=== PATIENT | female | born 1955 | race Caucasian/White ===

== ENCOUNTER 2016-12-23 06:29 | Inpatient (IN) | payer OTHER ==
[~2016-12-23] VITALS: Ht 160 cm; Wt 104.3 kg
[~2016-12-23 06:29] MED LIST: GLIP10TA11 PO; SIMV5TAB53 PO; SITA1TAB9 PO; SYNTHROID PO; [UNRECOGNIZED DRUG - OTHER]
[2016-12-23 06:35] VITALS: BP_SYST 161
[2016-12-23] MEDS ORDERED: NACL 0.9% 1,000 ML IV ONE (07:05)
[2016-12-23] MEDS ORDERED: MECLIZINE HCL 25 MG TABLET (ANITVERT) PO ONE (07:15)
[2016-12-23] MEDS ORDERED: ONDANSETRON HCL 4 MG/2 ML VIAL IVP ONE (07:15)
[2016-12-23] MEDS ORDERED: KETOROLAC TROMETHAMINE 30 MG VIAL IVP ONE (07:15)
[2016-12-23 07:22] LABS: BASOPHILS % (AUTO) 0.6 % (0.0-2.0); EOSINOPHILS # (AUTO) 0.1 K/uL (0.0-0.4); HEMATOCRIT 37.5 % (36-48); HEMOGLOBIN 12.6 g/dL (12.0-16.0); LYMPHOCYTES # (AUTO) 1.5 K/uL (1.0-5.5); LYMPHOCYTES % (AUTO) 29.9 % (20.5-51.5); MEAN CORPUSCULAR HEMOGLOBIN 29 pg (27-31); MEAN CORPUSCULAR HGB CONC 34 % (32-36); MEAN CORPUSCULAR VOLUME 88 fL (79.0-98.0); MONOCYTES # (AUTO) 0.3 K/uL (0.0-1.0); MONOCYTES % (AUTO) 6.1 % (1.7-9.3); NEUTROPHILS % (AUTO) 61.4 % (40.0-70.0); PLATELET COUNT (AUTO) 316 K/uL (130-430); RED BLOOD CELL COUNT(AUTO) 4.29 MIL/uL (4.2-6.2); RED CELL DISTRIBUTION WIDTH 12.4 % (9.0-15.0); WHITE BLOOD COUNT (AUTO) 4.9 K/uL (4.8-10.8)
[2016-12-23 08:01] LABS: ANION GAP 13 (5-15); CALCIUM 9.8 mg/dL (8.4-11.0); CHLORIDE 101 mmol/L (98-107); GLUCOSE 281 mg/dL (70-99); POTASSIUM 3.8 mmol/L (3.5-5.1); SODIUM SERUM 137 mmol/L (136-145); UREA NITROGEN, BLOOD 25 mg/dL (8-21)
[2016-12-23 08:02] LABS: GFR AFRICAN AMERICAN 54 mL/min (>90); TOTAL BILIRUBIN 0.4 mg/dL (0.0-1.0)
[2016-12-23 08:03] LABS: ALANINE AMINOTRANSFERASE 32 U/L (12-78); ALBUMIN 3.5 g/dL (3.4-4.8); ASPARTATE AMINOTRANSFERASE 22 U/L (10-37)
[2016-12-23 08:05] LABS: ACETONE, SERUM NEGATIVE (NEGATIVE)
[2016-12-23] MEDS ORDERED: fentaNYL CITRATE/PF 100 MCG/2 ML AMP IVP ONE (08:15)
[2016-12-23] MEDS ORDERED: PROMETHAZINE HCL 25 MG/ML AMP IVP ONE (08:15)
[2016-12-23] MEDS ORDERED: LEVO25TA58 PO (09:08)
[2016-12-23] MEDS ORDERED: HUM10VIA3 SUBCUT (09:08)
[2016-12-23] MEDS ORDERED: GLU500 PO (09:08)
[2016-12-23 09:42] VITALS: BP_SYST 131
[2016-12-23] MEDS ORDERED: DEXTROSE 50% JECT 50 ML DISP.SYRIN IVP PRN (10:30)
[2016-12-23 10:51] LABS: CHOLESTEROL 146 mg/dL (<200); HDL CHOLESTEROL 69 mg/dL (>55); LDL CHOLESTEROL 60 mg/dL (<100); TRIGLYCERIDES 135 mg/dL (30-150)
[2016-12-23] MEDS: INSULIN NPH/REGULAR 70-30, 100 UNITS/ML, 10 ML VIAL SUBCUT SCH ×3 (11:30→20:23)
[2016-12-23] MEDS: ASPIRIN 325 MG TABLET PO SCH (13:33)
[2016-12-23 16:02] VITALS: BP_SYST 130
[2016-12-23] MEDS: metFORMIN HCL 500 MG TABLET PO SCH (17:13)
[2016-12-23] MEDS: ACETAMINOPHEN 325 MG TABLET PO PRN (17:13)
[2016-12-23] MEDS: INSULIN REGULAR, HUMAN 100 UNITS/ML, 10 ML VIAL (novoLIN R) SUBCUT PRN (17:20)
[2016-12-23 20:00] VITALS: BP_SYST 111
[2016-12-24 00:31] VITALS: BP_SYST 117
[2016-12-24 04:00] VITALS: BP_SYST 124
[2016-12-24] MEDS: INSULIN NPH/REGULAR 70-30, 100 UNITS/ML, 10 ML VIAL SUBCUT SCH ×2 (06:09→12:13)
[2016-12-24] MEDS: INSULIN REGULAR, HUMAN 100 UNITS/ML, 10 ML VIAL (novoLIN R) SUBCUT PRN ×2 (06:11→12:14)
[2016-12-24] MEDS ORDERED: LEVOTHYROXINE SODIUM 0.025 MG TABLET PO SCH (07:00)
[2016-12-24 07:38] VITALS: BP_SYST 138
[2016-12-24] MEDS ORDERED: SIMVASTATIN 10 MG TABLET PO SCH (09:00)
[2016-12-24] MEDS ORDERED: SYNTHROID 88 MCG PO SCH (09:00)
[2016-12-24] MEDS: metFORMIN HCL 500 MG TABLET PO SCH (09:35)
[2016-12-24] MEDS: ASPIRIN 325 MG TABLET PO SCH (09:35)
[2016-12-24] MEDS ORDERED: MECL12.584 PO (10:01)
[2016-12-24] MEDS: ACETAMINOPHEN 325 MG TABLET PO PRN (11:02)
[2016-12-24 12:28] VITALS: BP_SYST 130
== END 2016-12-24 12:45 | disposition home or self-care (01) | DRG 149 ==
LOC: SED 06:29 → STU 09:09
PROVIDERS: ADMIT Internal Medicine Hospice and Palliative Medicine; ATTEND Internal Medicine Hospice and Palliative Medicine
DX: H81.10 Benign paroxysmal vertigo, unspecified ear (principal); E11.9 Type 2 diabetes mellitus without complications; I10 Essential (primary) hypertension; Z90.710 Acquired absence of both cervix and uterus; Z88.0 Allergy status to penicillin
CPT/HCPCS: 36415; 70450-TC; 70551; 71010; 80053; 80061; 82009-TC; 82962; 83605; 84484; 85025; 87040-TC; 93005; 93306; 93880; 96361; 96374; 96375; 99285; J1815; J1885; J2405; J2550; J3010; J7030; J8597

== ENCOUNTER 2021-06-07 15:44 | Inpatient (IN) | payer BC, OTHER ==
[~2021-06-07] VITALS: Ht 160 cm; Wt 94.8 kg
[~2021-06-07 15:44] MED LIST changes: -GLIP10TA11 PO; +GLU500 PO; +HUM10VIA3 SUBCUT; +LEVO25TA2 PO; +MECL-225 PO; -SIMV5TAB53 PO; +SIMV5TAB59 PO; -SITA1TAB9 PO; -[UNRECOGNIZED DRUG - OTHER]
[2021-06-07 15:45] VITALS: BP_SYST 120
[2021-06-07] MEDS ORDERED: dilTIAZem HCL IVP 5 MG/ML VIAL IVP ONE (16:00)
[2021-06-07] MEDS ORDERED: ASPIRIN 325 MG TABLET PO ONE (16:00)
[2021-06-07 16:16] LABS: BASOPHILS % (AUTO) 0.7 % (0.0-2.0); EOSINOPHILS % (AUTO) 0.2 % (0.0-4.0); HEMATOCRIT 29.9 % (36-48); HEMOGLOBIN 9.9 g/dL (12.0-16.0); LYMPHOCYTES # (AUTO) 0.8 K/uL (1.0-5.5); LYMPHOCYTES % (AUTO) 12.6 % (20.5-51.5); MEAN CORPUSCULAR HEMOGLOBIN 28 pg (27-31); MEAN CORPUSCULAR HGB CONC 33 % (32-36); MEAN CORPUSCULAR VOLUME 83 fL (79.0-98.0); MONOCYTES # (AUTO) 0.6 K/uL (0.0-1.0); MONOCYTES % (AUTO) 9.2 % (1.7-9.3); NEUTROPHILS % (AUTO) 77.3 % (40.0-70.0); PLATELET COUNT (AUTO) 291 K/uL (130-430); RED CELL DISTRIBUTION WIDTH 14.3 % (9.0-15.0); WHITE BLOOD COUNT (AUTO) 6.5 K/uL (4.8-10.8)
[2021-06-07 16:29] LABS: ANION GAP 12 (5-15); CALCIUM 9.5 mg/dL (8.4-11.0); CHLORIDE 99 mmol/L (98-107); CREATININE 1.87 mg/dL (0.55-1.30); GLUCOSE 106 mg/dL (70-99); SODIUM SERUM 134 mmol/L (136-145); UREA NITROGEN, BLOOD 34 mg/dL (8-21)
[2021-06-07] MEDS ORDERED: NACL 0.9% 1,000 ML IV ONE (16:30)
[2021-06-07 16:31] LABS: GFR AFRICAN AMERICAN 35 mL/min (>90)
[2021-06-07 16:41] LABS: ALANINE AMINOTRANSFERASE 33 U/L (12-78); ASPARTATE AMINOTRANSFERASE 18 U/L (10-37); TOTAL BILIRUBIN 0.3 mg/dL (0.0-1.0)
[2021-06-07] MEDS ORDERED: TAMS-11 PO (16:41)
[2021-06-07] MEDS ORDERED: METH-634 PO (16:41)
[2021-06-07] MEDS ORDERED: IBUP-1969 PO (16:41)
[2021-06-07 16:58] LABS: PROTHROMBIN TIME 10.5 SECS (9.5-12.5)
[2021-06-07] MEDS ORDERED: LEVO88TA5 PO (19:02)
[2021-06-07] MEDS ORDERED: EZET-84 (19:02)
[2021-06-07] MEDS ORDERED: LOSA25TA3 PO (19:02)
[2021-06-07 20:09] LABS: FREE T4 (FREE THYROXINE) 1.7 ng/dl (0.8-1.5); THYROID STIMULATING HORMONE 0.81 uIu/mL (0.36-3.74)
[2021-06-07] MEDS ORDERED: DEXTROSE 50% JECT 50 ML DISP.SYRIN IVP PRN (20:30)
[2021-06-07 22:10] VITALS: BP_SYST 138
[2021-06-08] MEDS ORDERED: LEVOTHYROXINE SODIUM 0.088 MG TABLET PO ONE (07:30)
[2021-06-08 08:02] VITALS: BP_SYST 123
[2021-06-08] MEDS: LOSARTAN POTASSIUM 25 MG TABLET PO SCH (08:20)
[2021-06-08] MEDS: ASPIRIN 81 MG TAB.CHEW PO SCH (08:24)
[2021-06-08] MEDS: ATORVASTATIN 20 MG TABLET PO SCH (08:24)
[2021-06-08] MEDS: METOPROLOL SUCCINATE 50 MG TAB.SR.24H (TOPROL XL) PO SCH (08:25)
[2021-06-08] MEDS: APIXABAN 2.5 MG TABLET PO SCH ×2 (08:27→20:49)
[2021-06-08 08:58] LABS: CALCIUM 8.4 mg/dL (8.4-11.0); CREATININE 1.45 mg/dL (0.55-1.30); TOTAL IRON BIND. CAPACITY 269 ug/dL (250-450)
[2021-06-08] MEDS: ACETAMINOPHEN 325 MG TABLET PO PRN ×2 (10:20→23:40)
[2021-06-08] MEDS: NACL 0.9% 1,000 ML IV SCH ×2 (10:22→20:20)
[2021-06-08 12:30] VITALS: BP_SYST 130
[2021-06-08 15:35] VITALS: BP_SYST 117
[2021-06-08] MEDS ORDERED: MORPHINE 2 MG/ML INJ. SYRINGE IVP PRN (16:30)
[2021-06-08] MEDS ORDERED: NALOXONE HCL 0.4 MG/ML AMP (NARCAN) IVP PRN (16:30)
[2021-06-08] MEDS: INSULIN REGULAR, HUMAN 100 UNITS/ML, 10 ML VIAL (humuLIN R) SUBCUT PRN (17:06)
[2021-06-08 20:02] VITALS: BP_SYST 111
[2021-06-08 23:24] VITALS: BP_SYST 109; BP_SYST 120
[2021-06-09] MEDS: LEVOTHYROXINE SODIUM 0.088 MG TABLET PO SCH (06:00)
[2021-06-09] MEDS: NACL 0.9% 1,000 ML IV SCH ×2 (06:00→17:21)
[2021-06-09 07:07] LABS: BASOPHILS % (AUTO) 0.6 % (0.0-2.0); EOSINOPHILS % (AUTO) 0.9 % (0.0-4.0); HEMATOCRIT 24.4 % (36-48); HEMOGLOBIN 8.2 g/dL (12.0-16.0); LYMPHOCYTES % (AUTO) 19.4 % (20.5-51.5); MEAN CORPUSCULAR HEMOGLOBIN 28 pg (27-31); MEAN CORPUSCULAR HGB CONC 34 % (32-36); MEAN CORPUSCULAR VOLUME 84 fL (79.0-98.0); MONOCYTES # (AUTO) 0.5 K/uL (0.0-1.0); MONOCYTES % (AUTO) 10.8 % (1.7-9.3); NEUTROPHILS # (AUTO) 3.4 K/uL (1.8-7.7); NEUTROPHILS % (AUTO) 68.3 % (40.0-70.0); PLATELET COUNT (AUTO) 226 K/uL (130-430)
[2021-06-09 07:58] VITALS: BP_SYST 124
[2021-06-09] MEDS: ATORVASTATIN 20 MG TABLET PO SCH (08:11)
[2021-06-09] MEDS: METOPROLOL SUCCINATE 50 MG TAB.SR.24H (TOPROL XL) PO SCH (08:13)
[2021-06-09] MEDS: ACETAMINOPHEN 325 MG TABLET PO PRN ×2 (08:13→21:06)
[2021-06-09] MEDS: ASPIRIN 81 MG TAB.CHEW PO SCH (08:13)
[2021-06-09] MEDS: LOSARTAN POTASSIUM 25 MG TABLET PO SCH (08:14)
[2021-06-09] MEDS: APIXABAN 2.5 MG TABLET PO SCH (08:16)
[2021-06-09 08:34] LABS: ALBUMIN 2.5 g/dL (3.4-4.8); CALCIUM 8.2 mg/dL (8.4-11.0); CREATININE 1.29 mg/dL (0.55-1.30); POTASSIUM 4.1 mmol/L (3.5-5.1); TOTAL BILIRUBIN 0.5 mg/dL (0.0-1.0)
[2021-06-09] MEDS ORDERED: PANTOPRAZOLE SODIUM 40 MG TAB PO ONE (10:30)
[2021-06-09] MEDS ORDERED: GASTROGRAFIN 120 ML ONE (10:46)
[2021-06-09] MEDS ORDERED: DIATR MEGLU/DIATRIZ SOD 30 ML SOLUTION PO ONE (10:46)
[2021-06-09 11:37] VITALS: BP_SYST 116
[2021-06-09] MEDS: INSULIN REGULAR, HUMAN 100 UNITS/ML, 10 ML VIAL (humuLIN R) SUBCUT PRN ×2 (11:54→17:30)
[2021-06-09 12:01] LABS: BILIRUBIN,URINE NEGATIVE (NEGATIVE); BLOOD, URINE NEGATIVE (NEGATIVE); CLARITY/URINE CLEAR (CLEAR); COLOR,URINE YELLOW (YELLOW); GLUCOSE,URINE NEGATIVE (NEGATIVE); KETONES,URINE 1+ (NEGATIVE); LEUKOCYTE ESTERASE ,URINE NEGATIVE (NEGATIVE); NITRITE, URINE NEGATIVE (NEGATIVE); PROTEIN URINE TRACE (NEGATIVE); UROBILINOGEN,URINE 0.2 (0.2-1.0)
[2021-06-09 15:27] VITALS: BP_SYST 138
[2021-06-09 20:00] VITALS: BP_SYST 121
[2021-06-10] MEDS: NACL 0.9% 1,000 ML IV SCH ×2 (00:15→10:15)
[2021-06-10 00:34] VITALS: BP_SYST 122
[2021-06-10] MEDS: LEVOTHYROXINE SODIUM 0.088 MG TABLET PO SCH (05:40)
[2021-06-10 06:31] LABS: BASOPHILS % (AUTO) 0.5 % (0.0-2.0); EOSINOPHILS % (AUTO) 0.7 % (0.0-4.0); HEMATOCRIT 25.8 % (36-48); HEMOGLOBIN 8.7 g/dL (12.0-16.0); LYMPHOCYTES # (AUTO) 0.8 K/uL (1.0-5.5); LYMPHOCYTES % (AUTO) 15.3 % (20.5-51.5); MEAN CORPUSCULAR HEMOGLOBIN 28 pg (27-31); MEAN CORPUSCULAR HGB CONC 34 % (32-36); MEAN CORPUSCULAR VOLUME 83 fL (79.0-98.0); MONOCYTES # (AUTO) 0.5 K/uL (0.0-1.0); MONOCYTES % (AUTO) 8.7 % (1.7-9.3); NEUTROPHILS % (AUTO) 74.8 % (40.0-70.0); PLATELET COUNT (AUTO) 249 K/uL (130-430); WHITE BLOOD COUNT (AUTO) 5.4 K/uL (4.8-10.8)
[2021-06-10 07:48] LABS: ALBUMIN 2.6 g/dL (3.4-4.8); BILIRUBIN,DIRECT 0.3 mg/dL (0.0-0.3); CALCIUM 8.7 mg/dL (8.4-11.0); CREATININE 1.17 mg/dL (0.55-1.30); PHOSPHORUS 2.9 mg/dL (2.7-4.5); POTASSIUM 4.6 mmol/L (3.5-5.1); TOTAL BILIRUBIN 0.5 mg/dL (0.0-1.0)
[2021-06-10 07:52] VITALS: BP_SYST 150
[2021-06-10] MEDS: ASPIRIN 81 MG TAB.CHEW PO SCH (08:22)
[2021-06-10] MEDS: PANTOPRAZOLE SODIUM 40 MG TAB PO SCH (08:22)
[2021-06-10] MEDS: ATORVASTATIN 20 MG TABLET PO SCH (08:22)
[2021-06-10] MEDS: LOSARTAN POTASSIUM 25 MG TABLET PO SCH (08:23)
[2021-06-10] MEDS: METOPROLOL SUCCINATE 50 MG TAB.SR.24H (TOPROL XL) PO SCH (08:23)
[2021-06-10 11:29] VITALS: BP_SYST 144
[2021-06-10] MEDS: INSULIN REGULAR, HUMAN 100 UNITS/ML, 10 ML VIAL (humuLIN R) SUBCUT PRN ×2 (11:45→17:22)
[2021-06-10 11:46] VITALS: BP_SYST 144
[2021-06-10] MEDS: ALBUTEROL SULFATE 0.083% 2.5 MG/3 ML VIAL.NEB INH PRN (13:48)
[2021-06-10] MEDS: IPRATROPIUM BROM 0.5 MG/2.5 ML VIAL.NEB (ATROVENT) INH PRN (13:49)
[2021-06-10] MEDS ORDERED: ASPIRIN 81 MG TAB.CHEW PO SCH (14:00)
[2021-06-10] MEDS: COLCHICINE 0.6 MG TABLET PO SCH ×2 (15:21→21:38)
[2021-06-10] MEDS: BENZONATATE 100 MG CAPSULE (TESSALON) PO PRN ×2 (15:22→21:38)
[2021-06-10 15:31] VITALS: BP_SYST 133
[2021-06-10 20:00] VITALS: BP_SYST 121
[2021-06-10] MEDS: ACETAMINOPHEN 325 MG TABLET PO PRN (21:38)
[2021-06-11 00:51] VITALS: BP_SYST 130
[2021-06-11] MEDS: LEVOTHYROXINE SODIUM 0.088 MG TABLET PO SCH (05:25)
[2021-06-11] MEDS ORDERED: fentaNYL CITRATE/PF 100 MCG/2 ML AMP ONE (06:25)
[2021-06-11] MEDS ORDERED: SIMETHICONE 40 MG/0.6 ML ML ONE (06:25)
[2021-06-11] MEDS ORDERED: MEPERIDINE 100 MG INJ. 100 MG/ML VIAL ONE (07:18)
[2021-06-11] MEDS: MIDAZOLAM HCL 5 MG/5 ML VIAL ONE ×2 (07:21→07:23)
[2021-06-11 08:00] VITALS: BP_SYST 143
[2021-06-11 08:47] LABS: BASOPHILS % (AUTO) 0.6 % (0.0-2.0); EOSINOPHILS # (AUTO) 0.1 K/uL (0.0-0.4); EOSINOPHILS % (AUTO) 1.8 % (0.0-4.0); HEMATOCRIT 26.4 % (36-48); HEMOGLOBIN 8.7 g/dL (12.0-16.0); LYMPHOCYTES # (AUTO) 0.9 K/uL (1.0-5.5); MEAN CORPUSCULAR HEMOGLOBIN 28 pg (27-31); MEAN CORPUSCULAR HGB CONC 33 % (32-36); MEAN CORPUSCULAR VOLUME 84 fL (79.0-98.0); MONOCYTES # (AUTO) 0.5 K/uL (0.0-1.0); MONOCYTES % (AUTO) 9.3 % (1.7-9.3); NEUTROPHILS # (AUTO) 3.6 K/uL (1.8-7.7); NEUTROPHILS % (AUTO) 70.3 % (40.0-70.0); PLATELET COUNT (AUTO) 291 K/uL (130-430); RED BLOOD CELL COUNT(AUTO) 3.16 MIL/uL (4.2-6.2); RED CELL DISTRIBUTION WIDTH 14.1 % (9.0-15.0); WHITE BLOOD COUNT (AUTO) 5.2 K/uL (4.8-10.8)
[2021-06-11 08:51] LABS: INR 1.1 (0.8-1.2); PROTHROMBIN TIME 11.9 SECS (9.5-12.5)
[2021-06-11] MEDS: ATORVASTATIN 20 MG TABLET PO SCH ×2 (09:00→10:11)
[2021-06-11 09:05] LABS: ALBUMIN 2.5 g/dL (3.4-4.8); BILIRUBIN,DIRECT 0.3 mg/dL (0.0-0.3); CALCIUM 8.4 mg/dL (8.4-11.0); CREATININE 1.13 mg/dL (0.55-1.30); POTASSIUM 4.5 mmol/L (3.5-5.1); TOTAL BILIRUBIN 0.7 mg/dL (0.0-1.0)
[2021-06-11] MEDS: ASPIRIN 81 MG TAB.CHEW PO SCH (10:05)
[2021-06-11] MEDS: PANTOPRAZOLE SODIUM 40 MG TAB PO SCH (10:05)
[2021-06-11] MEDS: COLCHICINE 0.6 MG TABLET PO SCH ×3 (10:05→22:06)
[2021-06-11] MEDS: METOPROLOL SUCCINATE 50 MG TAB.SR.24H (TOPROL XL) PO SCH (10:05)
[2021-06-11] MEDS: LOSARTAN POTASSIUM 25 MG TABLET PO SCH (10:06)
[2021-06-11] MEDS: INSULIN REGULAR, HUMAN 100 UNITS/ML, 10 ML VIAL (humuLIN R) SUBCUT PRN ×3 (11:06→23:57)
[2021-06-11 11:28] VITALS: BP_SYST 157
[2021-06-11] MEDS: ACETAMINOPHEN 325 MG TABLET PO PRN (12:32)
[2021-06-11 15:28] VITALS: BP_SYST 93
[2021-06-11 20:08] VITALS: BP_SYST 124
[2021-06-12 00:10] VITALS: BP_SYST 121
[2021-06-12] MEDS: LEVOTHYROXINE SODIUM 0.088 MG TABLET PO SCH (07:03)
[2021-06-12] MEDS: INSULIN REGULAR, HUMAN 100 UNITS/ML, 10 ML VIAL (humuLIN R) SUBCUT PRN ×4 (07:06→20:55)
[2021-06-12 08:00] VITALS: BP_SYST 146
[2021-06-12] MEDS: METOPROLOL SUCCINATE 50 MG TAB.SR.24H (TOPROL XL) PO SCH (08:25)
[2021-06-12] MEDS: COLCHICINE 0.6 MG TABLET PO SCH ×3 (08:25→20:51)
[2021-06-12] MEDS: PANTOPRAZOLE SODIUM 40 MG TAB PO SCH (08:25)
[2021-06-12] MEDS: LOSARTAN POTASSIUM 25 MG TABLET PO SCH (08:26)
[2021-06-12] MEDS: ASPIRIN 81 MG TAB.CHEW PO SCH (08:26)
[2021-06-12] MEDS: ATORVASTATIN 20 MG TABLET PO SCH (08:26)
[2021-06-12] MEDS: ACETAMINOPHEN 325 MG TABLET PO PRN (10:42)
[2021-06-12] MEDS ORDERED: FUROSEMIDE 20 MG/2 ML VIAL IVP ONE (11:15)
[2021-06-12 12:00] VITALS: BP_SYST 122
[2021-06-12] MEDS: IPRATROPIUM BROM 0.5 MG/2.5 ML VIAL.NEB (ATROVENT) INH PRN (12:35)
[2021-06-12] MEDS: ALBUTEROL SULFATE 0.083% 2.5 MG/3 ML VIAL.NEB INH PRN (12:35)
[2021-06-12 16:00] VITALS: BP_SYST 118
[2021-06-12] MEDS: BENZONATATE 100 MG CAPSULE (TESSALON) PO PRN (17:37)
[2021-06-12 20:49] VITALS: BP_SYST 140
[2021-06-13 00:30] VITALS: BP_SYST 132
[2021-06-13] MEDS: LEVOTHYROXINE SODIUM 0.088 MG TABLET PO SCH (06:28)
[2021-06-13] MEDS: INSULIN REGULAR, HUMAN 100 UNITS/ML, 10 ML VIAL (humuLIN R) SUBCUT PRN ×2 (06:36→12:22)
[2021-06-13 08:00] VITALS: BP_SYST 135
[2021-06-13 08:06] LABS: HEPATITIS A AB, IgM Negative (Negative); HEPATITIS B CORE AB, IgM Negative (Negative); HEPATITIS B SURFACE AG Negative (Negative)
[2021-06-13] MEDS ORDERED: METHYLPREDNISOLONE SOD SUCC 40 MG/ML VIAL IVP SCH (09:00)
[2021-06-13] MEDS: PANTOPRAZOLE SODIUM 40 MG TAB PO SCH (09:34)
[2021-06-13] MEDS: LOSARTAN POTASSIUM 25 MG TABLET PO SCH (09:34)
[2021-06-13] MEDS: ASPIRIN 81 MG TAB.CHEW PO SCH (09:34)
[2021-06-13] MEDS: METOPROLOL SUCCINATE 50 MG TAB.SR.24H (TOPROL XL) PO SCH (09:34)
[2021-06-13] MEDS: ATORVASTATIN 20 MG TABLET PO SCH (09:34)
[2021-06-13] MEDS: COLCHICINE 0.6 MG TABLET PO SCH ×2 (09:47→15:53)
[2021-06-13] MEDS ORDERED: MED4 PO (10:51)
[2021-06-13] MEDS ORDERED: PRO40 PO (10:51)
[2021-06-13] MEDS ORDERED: COLC0.6T67 PO (10:51)
[2021-06-13] MEDS ORDERED: METO50TA7 PO (10:57)
[2021-06-13 11:26] VITALS: BP_SYST 134
[2021-06-13 15:25] VITALS: BP_SYST 144
[2021-06-13 16:09] VITALS: BP_SYST 144
[2021-06-14 14:54] LABS: ANTI NUCLEAR AB WITH REFLEX Positive (Negative)
== END 2021-06-13 17:00 | disposition home or self-care (01) | DRG 308 ==
LOC: SED 15:44 → INTOOBSV 19:11 → STU 19:11 → OBSVTOIN 19:15 → STU 21:46 → SMU 06-10 19:14
PROVIDERS: ADMIT Internal Medicine Hospice and Palliative Medicine; ATTEND Internal Medicine Hospice and Palliative Medicine
PROC: 0DB78ZX Excision of Stomach, Pylorus, Via Natural or Artificial Opening Endoscopic, Diagnostic (ICD-10-PCS; 2021-06-11)
PROC: 0DB68ZX Excision of Stomach, Via Natural or Artificial Opening Endoscopic, Diagnostic (ICD-10-PCS; 2021-06-11)
PROC: 0DB58ZX Excision of Esophagus, Via Natural or Artificial Opening Endoscopic, Diagnostic (ICD-10-PCS; 2021-06-11)
PROC: 0DB98ZX Excision of Duodenum, Via Natural or Artificial Opening Endoscopic, Diagnostic (ICD-10-PCS; principal; 2021-06-11 07:00)
DX: I48.0 Paroxysmal atrial fibrillation (principal); E43 Unspecified severe protein-calorie malnutrition; N17.0 Acute kidney failure with tubular necrosis; I31.3 Pericardial effusion (noninflammatory); E87.1 Hypo-osmolality and hyponatremia; I13.0 Hypertensive heart and chronic kidney disease with heart failure and stage 1 through stage 4 chronic kidney disease, or unspecified chronic kidney disease; I50.30 Unspecified diastolic (congestive) heart failure; I31.9 Disease of pericardium, unspecified; D50.9 Iron deficiency anemia, unspecified; K21.00 Gastro-esophageal reflux disease with esophagitis, without bleeding; D63.1 Anemia in chronic kidney disease; E11.65 Type 2 diabetes mellitus with hyperglycemia; E11.22 Type 2 diabetes mellitus with diabetic chronic kidney disease; E03.9 Hypothyroidism, unspecified; E83.52 Hypercalcemia; E78.5 Hyperlipidemia, unspecified; E66.9 Obesity, unspecified; K80.20 Calculus of gallbladder without cholecystitis without obstruction; K29.00 Acute gastritis without bleeding; Z20.822 Contact with and (suspected) exposure to COVID-19; N18.30 Chronic kidney disease, stage 3 unspecified; Z83.3 Family history of diabetes mellitus; Z79.899 Other long term (current) drug therapy; Z90.710 Acquired absence of both cervix and uterus; Z79.4 Long term (current) use of insulin; Z79.01 Long term (current) use of anticoagulants; Z68.37 Body mass index [BMI] 37.0-37.9, adult; Z88.0 Allergy status to penicillin; Z91.018 Allergy to other foods
CPT/HCPCS: 36415; 43239; 71045; 76376; 76700-TC; 80048; 80053; 80061; 80074; 80076; 81003; 82550; 82607; 82962; 82977; 83036; 83516; 83540; 83550; 83690; 83735; 83880; 84100; 84439; 84443; 84479; 84484; 85025; 85610-TC; 85651-TC; 85730-TC; 86038; 86140; 87081; 88305; 88312; 88313; 93005; 93306; 94640; 96361; 96374; 99291; G0378; J1030; J1815; J1940; J2175; J2250; J2270; J3010; J3490; J7613; Q9963; Q9964

== ENCOUNTER 2021-06-26 05:04 | Inpatient (IN) | payer BC ==
[~2021-06-26] VITALS: Ht 160 cm; Wt 91.6 kg
[~2021-06-26 05:04] MED LIST changes: +COLC0.6T67 PO; +EZET-84; -LEVO25TA2 PO; +LEVO88TA5 PO; +LOSA25TA3 PO; -MECL-225 PO; +MED4 PO; +METO50TA7 PO; +PRO40 PO; -SIMV5TAB59 PO; -SYNTHROID PO
[2021-06-26] MEDS ORDERED: MORPHINE 4 MG INJ. 4 MG/ML VIAL IVP ONE (05:09)
[2021-06-26] MEDS ORDERED: NITROGLYCERIN 1 INCH (GM) OINT. TP ONE (05:09)
[2021-06-26 05:15] VITALS: BP_SYST 142
[2021-06-26] MEDS ORDERED: ASPIRIN 325 MG TABLET PO ONE (05:15)
[2021-06-26] MEDS ORDERED: ENOXAPARIN SODIUM 100 MG/ML SYRINGE SUBCUT ONE (05:45)
[2021-06-26 06:27] LABS: ANION GAP 10 (5-15); CALCIUM 9.4 mg/dL (8.4-11.0); CHLORIDE 104 mmol/L (98-107); CREATININE 1.26 mg/dL (0.55-1.30); GLUCOSE 139 mg/dL (70-99); POTASSIUM 4.3 mmol/L (3.5-5.1); SODIUM SERUM 137 mmol/L (136-145); UREA NITROGEN, BLOOD 27 mg/dL (8-21)
[2021-06-26 06:35] LABS: ALANINE AMINOTRANSFERASE 133 U/L (12-78); ALBUMIN 2.4 g/dL (3.4-4.8); ASPARTATE AMINOTRANSFERASE 86 U/L (10-37); TOTAL BILIRUBIN 0.1 mg/dL (0.0-1.0)
[2021-06-26 06:36] LABS: BASOPHILS % (AUTO) 0.7 % (0.0-2.0); EOSINOPHILS # (AUTO) 0.1 K/uL (0.0-0.4); EOSINOPHILS % (AUTO) 1.8 % (0.0-4.0); GFR AFRICAN AMERICAN 55 mL/min (>90); HEMATOCRIT 31.7 % (36-48); HEMOGLOBIN 10.1 g/dL (12.0-16.0); LYMPHOCYTES # (AUTO) 0.8 K/uL (1.0-5.5); LYMPHOCYTES % (AUTO) 12.9 % (20.5-51.5); MEAN CORPUSCULAR HEMOGLOBIN 26 pg (27-31); MEAN CORPUSCULAR HGB CONC 32 % (32-36); MEAN CORPUSCULAR VOLUME 81 fL (79.0-98.0); MONOCYTES # (AUTO) 0.5 K/uL (0.0-1.0); MONOCYTES % (AUTO) 8.3 % (1.7-9.3); NEUTROPHILS # (AUTO) 4.5 K/uL (1.8-7.7); NEUTROPHILS % (AUTO) 76.3 % (40.0-70.0); PLATELET COUNT (AUTO) 366 K/uL (130-430); RED BLOOD CELL COUNT(AUTO) 3.89 MIL/uL (4.2-6.2); RED CELL DISTRIBUTION WIDTH 14.4 % (9.0-15.0); WHITE BLOOD COUNT (AUTO) 5.9 K/uL (4.8-10.8)
[2021-06-26 08:40] LABS: FREE T4 (FREE THYROXINE) 1.7 ng/dl (0.8-1.5); THYROID STIMULATING HORMONE 2.36 uIu/mL (0.36-3.74)
[2021-06-26 09:25] VITALS: BP_SYST 114
[2021-06-26] MEDS: METOPROLOL SUCCINATE 50 MG TAB.SR.24H (TOPROL XL) PO SCH (10:54)
[2021-06-26] MEDS: PANTOPRAZOLE SODIUM 40 MG TAB PO SCH (10:54)
[2021-06-26] MEDS: LEVOTHYROXINE SODIUM 0.088 MG TABLET PO SCH (10:55)
[2021-06-26] MEDS: LOSARTAN POTASSIUM 25 MG TABLET PO SCH (10:55)
[2021-06-26] MEDS: COLCHICINE 0.6 MG TABLET PO SCH (10:55)
[2021-06-26 12:30] VITALS: BP_SYST 119
[2021-06-26 16:00] VITALS: BP_SYST 121
[2021-06-26] MEDS: ACETAMINOPHEN 325 MG TABLET PO PRN (16:55)
[2021-06-26] MEDS ORDERED: INSULIN NPH/REGULAR 70-30, 100 UNITS/ML, 10 ML VIAL SUBCUT SCH (17:00)
[2021-06-26] MEDS ORDERED: INSULIN Aspart Prota/Aspar MIX 70-30, 100 UNITS/ML, 10 ML VIAL SUBCUT SCH (17:00)
[2021-06-26 20:00] VITALS: BP_SYST 110
[2021-06-26] MEDS: INSULIN REGULAR, HUMAN 100 UNITS/ML, 10 ML VIAL (humuLIN R) SUBCUT PRN (20:36)
[2021-06-27 02:09] VITALS: BP_SYST 112
[2021-06-27] MEDS: INSULIN REGULAR, HUMAN 100 UNITS/ML, 10 ML VIAL (humuLIN R) SUBCUT PRN ×2 (06:50→20:52)
[2021-06-27 06:52] LABS: BASOPHILS % (AUTO) 0.8 % (0.0-2.0); EOSINOPHILS # (AUTO) 0.1 K/uL (0.0-0.4); EOSINOPHILS % (AUTO) 2.7 % (0.0-4.0); HEMATOCRIT 30.7 % (36-48); LYMPHOCYTES % (AUTO) 26.1 % (20.5-51.5); MEAN CORPUSCULAR HEMOGLOBIN 26 pg (27-31); MEAN CORPUSCULAR HGB CONC 33 % (32-36); MEAN CORPUSCULAR VOLUME 81 fL (79.0-98.0); MONOCYTES # (AUTO) 0.4 K/uL (0.0-1.0); MONOCYTES % (AUTO) 10.1 % (1.7-9.3); NEUTROPHILS # (AUTO) 2.3 K/uL (1.8-7.7); NEUTROPHILS % (AUTO) 60.3 % (40.0-70.0); PLATELET COUNT (AUTO) 402 K/uL (130-430); RED CELL DISTRIBUTION WIDTH 14.3 % (9.0-15.0); WHITE BLOOD COUNT (AUTO) 3.8 K/uL (4.8-10.8)
[2021-06-27] MEDS: ACETAMINOPHEN 325 MG TABLET PO PRN ×2 (06:52→15:18)
[2021-06-27] MEDS ORDERED: INSULIN Aspart Prota/Aspar MIX 70-30, 100 UNITS/ML, 10 ML VIAL SUBCUT SCH (07:00)
[2021-06-27] MEDS ORDERED: INSULIN NPH/REGULAR 70-30, 100 UNITS/ML, 10 ML VIAL SUBCUT SCH (07:00)
[2021-06-27 07:50] LABS: CALCIUM 9.4 mg/dL (8.4-11.0); CREATININE 1.16 mg/dL (0.55-1.30); POTASSIUM 4.5 mmol/L (3.5-5.1)
[2021-06-27 07:58] LABS: ALBUMIN 2.5 g/dL (3.4-4.8); TOTAL BILIRUBIN 0.1 mg/dL (0.0-1.0)
[2021-06-27 08:00] VITALS: BP_SYST 125
[2021-06-27] MEDS: COLCHICINE 0.6 MG TABLET PO SCH (08:23)
[2021-06-27] MEDS: LOSARTAN POTASSIUM 25 MG TABLET PO SCH (08:23)
[2021-06-27] MEDS: LEVOTHYROXINE SODIUM 0.088 MG TABLET PO SCH (08:23)
[2021-06-27] MEDS: PANTOPRAZOLE SODIUM 40 MG TAB PO SCH (08:23)
[2021-06-27] MEDS: METOPROLOL SUCCINATE 50 MG TAB.SR.24H (TOPROL XL) PO SCH (08:24)
[2021-06-27] MEDS ORDERED: SOTALOL HCL 80 MG TABLET PO ONE (09:15)
[2021-06-27 09:39] LABS: ERYTHROCYTE SEDIMENTATION RATE 98 MM/HR (0-20)
[2021-06-27 11:56] VITALS: BP_SYST 114
[2021-06-27 16:33] VITALS: BP_SYST 109
[2021-06-27] MEDS: SOTALOL HCL 80 MG TABLET PO SCH (20:54)
[2021-06-28 01:24] VITALS: BP_SYST 114
[2021-06-28] MEDS: INSULIN REGULAR, HUMAN 100 UNITS/ML, 10 ML VIAL (humuLIN R) SUBCUT PRN ×4 (06:16→22:49)
[2021-06-28 07:01] LABS: BASOPHILS % (AUTO) 0.6 % (0.0-2.0); CALCIUM 7.9 mg/dL (8.4-11.0); CREATININE 1.2 mg/dL (0.55-1.30); EOSINOPHILS # (AUTO) 0.1 K/uL (0.0-0.4); EOSINOPHILS % (AUTO) 2.5 % (0.0-4.0); HEMATOCRIT 29.4 % (36-48); HEMOGLOBIN 9.5 g/dL (12.0-16.0); LYMPHOCYTES % (AUTO) 20.1 % (20.5-51.5); MEAN CORPUSCULAR HEMOGLOBIN 26 pg (27-31); MEAN CORPUSCULAR HGB CONC 32 % (32-36); MEAN CORPUSCULAR VOLUME 81 fL (79.0-98.0); MONOCYTES # (AUTO) 0.5 K/uL (0.0-1.0); MONOCYTES % (AUTO) 9.9 % (1.7-9.3); NEUTROPHILS # (AUTO) 3.4 K/uL (1.8-7.7); NEUTROPHILS % (AUTO) 66.9 % (40.0-70.0); PLATELET COUNT (AUTO) 391 K/uL (130-430); POTASSIUM 4.7 mmol/L (3.5-5.1); RED BLOOD CELL COUNT(AUTO) 3.65 MIL/uL (4.2-6.2); RED CELL DISTRIBUTION WIDTH 14.5 % (9.0-15.0); WHITE BLOOD COUNT (AUTO) 5.1 K/uL (4.8-10.8)
[2021-06-28 07:13] LABS: ALBUMIN 2.3 g/dL (3.4-4.8); TOTAL BILIRUBIN 0.1 mg/dL (0.0-1.0)
[2021-06-28 08:00] VITALS: BP_SYST 141
[2021-06-28 12:00] VITALS: BP_SYST 135
[2021-06-28 12:46] LABS: BILIRUBIN,URINE NEGATIVE (NEGATIVE); BLOOD, URINE NEGATIVE (NEGATIVE); CLARITY/URINE CLEAR (CLEAR); COLOR,URINE YELLOW (YELLOW); GLUCOSE,URINE NEGATIVE (NEGATIVE); KETONES,URINE NEGATIVE (NEGATIVE); LEUKOCYTE ESTERASE ,URINE NEGATIVE (NEGATIVE); NITRITE, URINE NEGATIVE (NEGATIVE); PH,URINE 6.5 (5.0-8.0); PROTEIN URINE TRACE (NEGATIVE); UROBILINOGEN,URINE 0.2 (0.2-1.0)
[2021-06-28] MEDS: APIXABAN 2.5 MG TABLET PO SCH ×2 (12:50→21:45)
[2021-06-28] MEDS: COLCHICINE 0.6 MG TABLET PO SCH (12:52)
[2021-06-28] MEDS: SOTALOL HCL 80 MG TABLET PO SCH ×2 (12:52→21:42)
[2021-06-28] MEDS: LOSARTAN POTASSIUM 25 MG TABLET PO SCH (12:53)
[2021-06-28] MEDS: PANTOPRAZOLE SODIUM 40 MG TAB PO SCH (12:53)
[2021-06-28] MEDS: LEVOTHYROXINE SODIUM 0.088 MG TABLET PO SCH (12:53)
[2021-06-28] MEDS: METOPROLOL SUCCINATE 50 MG TAB.SR.24H (TOPROL XL) PO SCH (12:54)
[2021-06-28 19:20] VITALS: BP_SYST 125
[2021-06-28 20:00] VITALS: BP_SYST 101
[2021-06-29 05:56] LABS: BASOPHILS % (AUTO) 0.5 % (0.0-2.0); EOSINOPHILS # (AUTO) 0.1 K/uL (0.0-0.4); EOSINOPHILS % (AUTO) 2.3 % (0.0-4.0); HEMATOCRIT 29.8 % (36-48); HEMOGLOBIN 9.7 g/dL (12.0-16.0); LYMPHOCYTES # (AUTO) 1.2 K/uL (1.0-5.5); LYMPHOCYTES % (AUTO) 25.1 % (20.5-51.5); MEAN CORPUSCULAR HEMOGLOBIN 26 pg (27-31); MEAN CORPUSCULAR HGB CONC 33 % (32-36); MEAN CORPUSCULAR VOLUME 80 fL (79.0-98.0); MONOCYTES # (AUTO) 0.4 K/uL (0.0-1.0); MONOCYTES % (AUTO) 7.6 % (1.7-9.3); NEUTROPHILS # (AUTO) 3.1 K/uL (1.8-7.7); NEUTROPHILS % (AUTO) 64.5 % (40.0-70.0); PLATELET COUNT (AUTO) 387 K/uL (130-430); RED BLOOD CELL COUNT(AUTO) 3.71 MIL/uL (4.2-6.2); RED CELL DISTRIBUTION WIDTH 14.8 % (9.0-15.0); WHITE BLOOD COUNT (AUTO) 4.8 K/uL (4.8-10.8)
[2021-06-29 07:26] LABS: ALBUMIN 2.4 g/dL (3.4-4.8); CALCIUM 8.1 mg/dL (8.4-11.0); CREATININE 1.2 mg/dL (0.55-1.30); POTASSIUM 4.8 mmol/L (3.5-5.1)
[2021-06-29 08:00] VITALS: BP_SYST 133
[2021-06-29] MEDS: LOSARTAN POTASSIUM 25 MG TABLET PO SCH (09:52)
[2021-06-29] MEDS: PANTOPRAZOLE SODIUM 40 MG TAB PO SCH (09:52)
[2021-06-29] MEDS: METOPROLOL SUCCINATE 50 MG TAB.SR.24H (TOPROL XL) PO SCH (09:53)
[2021-06-29] MEDS: COLCHICINE 0.6 MG TABLET PO SCH (09:53)
[2021-06-29] MEDS: LEVOTHYROXINE SODIUM 0.088 MG TABLET PO SCH (09:53)
[2021-06-29] MEDS: APIXABAN 2.5 MG TABLET PO SCH (09:55)
[2021-06-29] MEDS: INSULIN REGULAR, HUMAN 100 UNITS/ML, 10 ML VIAL (humuLIN R) SUBCUT PRN ×3 (09:57→17:00)
[2021-06-29] MEDS: SOTALOL HCL 80 MG TABLET PO SCH (09:59)
[2021-06-29 10:00] VITALS: BP_SYST 129
[2021-06-29 10:25] LABS: TOTAL BILIRUBIN 0.1 mg/dL (0.0-1.0)
[2021-06-29] MEDS ORDERED: SOTA80TA71 PO (11:37)
[2021-06-29] MEDS ORDERED: APIX2.5T PO (11:37)
[2021-06-29] MEDS ORDERED: COLC0.6T67 PO (11:37)
[2021-06-29 16:00] VITALS: BP_SYST 139
[2021-06-29 17:46] VITALS: BP_SYST 139
== END 2021-06-29 23:43 | disposition home health service (06) | DRG 308 ==
LOC: SED 05:04 → STU 05:47
PROVIDERS: ADMIT Preventive Medicine Preventive Medicine/Occupational Environmental Medicine; ATTEND Preventive Medicine Preventive Medicine/Occupational Environmental Medicine
DX: I48.0 Paroxysmal atrial fibrillation (principal); E43 Unspecified severe protein-calorie malnutrition; I31.3 Pericardial effusion (noninflammatory); I13.0 Hypertensive heart and chronic kidney disease with heart failure and stage 1 through stage 4 chronic kidney disease, or unspecified chronic kidney disease; R07.9 Chest pain, unspecified; D64.9 Anemia, unspecified; E83.52 Hypercalcemia; E88.09 Other disorders of plasma-protein metabolism, not elsewhere classified; E03.9 Hypothyroidism, unspecified; M10.9 Gout, unspecified; E11.65 Type 2 diabetes mellitus with hyperglycemia; Z20.822 Contact with and (suspected) exposure to COVID-19; N32.81 Overactive bladder; I50.9 Heart failure, unspecified; N18.30 Chronic kidney disease, stage 3 unspecified; E11.22 Type 2 diabetes mellitus with diabetic chronic kidney disease; I20.9 Angina pectoris, unspecified; Z88.5 Allergy status to narcotic agent; Z88.8 Allergy status to other drugs, medicaments and biological substances; Z91.09 Other allergy status, other than to drugs and biological substances; Z79.899 Other long term (current) drug therapy; Z90.710 Acquired absence of both cervix and uterus; Z79.84 Long term (current) use of oral hypoglycemic drugs; Z79.82 Long term (current) use of aspirin; Z83.3 Family history of diabetes mellitus; Z68.35 Body mass index [BMI] 35.0-35.9, adult
CPT/HCPCS: 36415; 71045; 80048; 80053; 81003; 82962; 83735; 83880; 84439; 84443; 84484; 85025; 85651-TC; 87081; 93005; 93306; 96372; 99291; G0378; J1650; J1815

== ENCOUNTER 2021-06-30 22:11 | Inpatient (IN) | payer BC ==
[~2021-06-30] VITALS: Ht 157.5 cm; Wt 91.6 kg
[2021-06-30 22:11] VITALS: BP_SYST 138
[~2021-06-30 22:11] MED LIST changes: +APIX2.5T PO; -MED4 PO; +SOTA80TA71 PO
[2021-06-30] MEDS ORDERED: ONDANSETRON HCL 4 MG/2 ML VIAL ONE (22:20)
[2021-06-30] MEDS ORDERED: NACL 0.9% 500 ML IV ONE (22:30)
[2021-06-30] MEDS ORDERED: ONDANSETRON HCL 4 MG/2 ML VIAL IVP ONE (22:30)
[2021-06-30 23:02] LABS: HEMOGLOBIN 9.3 g/dL (12.0-16.0); MEAN CORPUSCULAR VOLUME 81 fL (79.0-98.0)
[2021-06-30 23:04] LABS: CALCIUM 7.8 mg/dL (8.4-11.0); CREATININE 1.52 mg/dL (0.55-1.30); POTASSIUM 3.5 mmol/L (3.5-5.1)
[2021-06-30 23:10] LABS: BASOPHILS % (AUTO) 0.5 % (0.0-2.0); EOSINOPHILS % (AUTO) 0.6 % (0.0-4.0); HEMATOCRIT 28.4 % (36-48); LYMPHOCYTES % (AUTO) 12.9 % (20.5-51.5); MEAN CORPUSCULAR HEMOGLOBIN 26 pg (27-31); MEAN CORPUSCULAR HGB CONC 33 % (32-36); MONOCYTES # (AUTO) 0.9 K/uL (0.0-1.0); MONOCYTES % (AUTO) 11.2 % (1.7-9.3); NEUTROPHILS % (AUTO) 74.8 % (40.0-70.0); PLATELET COUNT (AUTO) 420 K/uL (130-430); RED BLOOD CELL COUNT(AUTO) 3.52 MIL/uL (4.2-6.2); RED CELL DISTRIBUTION WIDTH 14.2 % (9.0-15.0); WHITE BLOOD COUNT (AUTO) 8.1 K/uL (4.8-10.8)
[2021-06-30 23:15] LABS: ALBUMIN 2.4 g/dL (3.4-4.8); TOTAL BILIRUBIN 0.3 mg/dL (0.0-1.0)
[2021-07-01 06:57] LABS: BILIRUBIN,URINE NEGATIVE (NEGATIVE); BLOOD, URINE NEGATIVE (NEGATIVE); CLARITY/URINE SL CLOUDY (CLEAR); COLOR,URINE YELLOW (YELLOW); GLUCOSE,URINE NEGATIVE (NEGATIVE); KETONES,URINE NEGATIVE (NEGATIVE); LEUKOCYTE ESTERASE ,URINE TRACE (NEGATIVE); NITRITE, URINE NEGATIVE (NEGATIVE); PROTEIN URINE TRACE (NEGATIVE); UROBILINOGEN,URINE 0.2 (0.2-1.0)
[2021-07-01 07:24] LABS: URINE SULFO SALICYLIC ACID NEGATIVE (NEGATIVE)
[2021-07-01 07:25] LABS: BACTERIA,URINE FEW /HPF (None Seen); MUCUS,URINE 1+ /LPF (None Seen); RBC,URINE 0-3 /HPF (0-3); WBC,URINE 0-3 /HPF (0-3)
[2021-07-01] MEDS ORDERED: LORazepam 2 MG/ML VIAL IVP PRN (11:00)
[2021-07-01] MEDS ORDERED: D5W 1,000 ML IV PRN (11:15)
[2021-07-01] MEDS ORDERED: DEXTROSE 50%-WATER 50 ML DISP.SYRIN IVP PRN (11:15)
[2021-07-01] MEDS ORDERED: GLUCOSE (DEXTROSE) ORAL GEL -Adults PO PRN (11:15)
[2021-07-01] MEDS ORDERED: LEVOTHYROXINE SODIUM 0.088 MG TABLET PO ONE (13:00)
[2021-07-01] MEDS ORDERED: COLCHICINE 0.6 MG TABLET PO ONE (13:00)
[2021-07-01] MEDS ORDERED: SIMVASTATIN 20 MG TABLET PO ONE (13:15)
[2021-07-01] MEDS ORDERED: EZETIMIBE 10 MG TABLET PO ONE (13:15)
[2021-07-01] MEDS ORDERED: NORMAL SALINE 5 ML DISP.SYRIN IVF SCH (14:00)
[2021-07-01] MEDS ORDERED: INSULIN REGULAR, HUMAN 10 UNITS/0.1 ML INJ ONE (14:48)
[2021-07-01] MEDS: NORMAL SALINE 5 ML DISP.SYRIN IVF SCH ×2 (15:07→20:00)
[2021-07-01] MEDS: metFORMIN HCL 500 MG TABLET PO SCH (19:30)
[2021-07-01] MEDS ORDERED: SOTALOL (AF) 80 MG TABLET PO SCH (21:00)
[2021-07-02] MEDS ORDERED: SOTALOL HCL 80 MG TABLET ONE (00:03)
[2021-07-02] MEDS ORDERED: metFORMIN HCL 500 MG TABLET ONE (00:05)
[2021-07-02] MEDS: APIXABAN 2.5 MG TABLET PO SCH ×3 (01:13→21:44)
[2021-07-02] MEDS: NORMAL SALINE 5 ML DISP.SYRIN IVF SCH ×3 (05:58→22:00)
[2021-07-02 07:21] LABS: BASOPHILS % (AUTO) 0.3 % (0.0-2.0); EOSINOPHILS % (AUTO) 0.4 % (0.0-4.0); HEMATOCRIT 28.4 % (36-48); HEMOGLOBIN 9.4 g/dL (12.0-16.0); LYMPHOCYTES % (AUTO) 13.6 % (20.5-51.5); MEAN CORPUSCULAR HEMOGLOBIN 27 pg (27-31); MEAN CORPUSCULAR HGB CONC 33 % (32-36); MEAN CORPUSCULAR VOLUME 81 fL (79.0-98.0); MONOCYTES # (AUTO) 0.7 K/uL (0.0-1.0); MONOCYTES % (AUTO) 10.1 % (1.7-9.3); NEUTROPHILS # (AUTO) 5.4 K/uL (1.8-7.7); NEUTROPHILS % (AUTO) 75.6 % (40.0-70.0); PLATELET COUNT (AUTO) 319 K/uL (130-430); RED BLOOD CELL COUNT(AUTO) 3.51 MIL/uL (4.2-6.2); RED CELL DISTRIBUTION WIDTH 14.6 % (9.0-15.0); WHITE BLOOD COUNT (AUTO) 7.1 K/uL (4.8-10.8)
[2021-07-02 07:38] LABS: ALBUMIN 2.2 g/dL (3.4-4.8); CALCIUM 8.2 mg/dL (8.4-11.0); CREATININE 1.28 mg/dL (0.55-1.30); PHOSPHORUS 3.6 mg/dL (2.7-4.5); POTASSIUM 3.9 mmol/L (3.5-5.1); TOTAL BILIRUBIN 0.2 mg/dL (0.0-1.0)
[2021-07-02] MEDS: EZETIMIBE 10 MG TABLET PO SCH (08:08)
[2021-07-02] MEDS: COLCHICINE 0.6 MG TABLET PO SCH (08:10)
[2021-07-02] MEDS: SIMVASTATIN 20 MG TABLET PO SCH (08:10)
[2021-07-02] MEDS: PANTOPRAZOLE SODIUM 40 MG TAB PO SCH (08:11)
[2021-07-02] MEDS: LEVOTHYROXINE SODIUM 0.088 MG TABLET PO SCH (08:11)
[2021-07-02] MEDS: LOSARTAN POTASSIUM 25 MG TABLET PO SCH (08:12)
[2021-07-02] MEDS: metFORMIN HCL 500 MG TABLET PO SCH (08:12)
[2021-07-02] MEDS ORDERED: EZETIMIBE/SIMVASTATIN 1 TABLET PO SCH (09:00)
[2021-07-02] MEDS ORDERED: METOPROLOL SUCCINATE 50 MG TAB.SR.24H (TOPROL XL) PO SCH (09:00)
[2021-07-02] MEDS ORDERED: INSULIN REGULAR, HUMAN 10 UNITS/0.1 ML INJ ONE (12:00)
[2021-07-02] MEDS: INSULIN REGULAR, HUMAN 100 UNITS/ML, 10 ML VIAL (humuLIN R) SUBCUT PRN ×2 (12:11→17:28)
[2021-07-02 20:00] VITALS: BP_SYST 119
[2021-07-03] VITALS (7 sets, daily range): BP systolic 100–148
[2021-07-03] MEDS: ONDANSETRON HCL 4 MG/2 ML VIAL IVP PRN (04:27)
[2021-07-03] MEDS: NORMAL SALINE 5 ML DISP.SYRIN IVF SCH ×3 (06:00→22:00)
[2021-07-03] MEDS: EZETIMIBE 10 MG TABLET PO SCH (08:24)
[2021-07-03] MEDS: PANTOPRAZOLE SODIUM 40 MG TAB PO SCH (08:25)
[2021-07-03] MEDS: SIMVASTATIN 20 MG TABLET PO SCH (08:25)
[2021-07-03] MEDS: LOSARTAN POTASSIUM 25 MG TABLET PO SCH (08:27)
[2021-07-03] MEDS: LEVOTHYROXINE SODIUM 0.088 MG TABLET PO SCH (08:27)
[2021-07-03] MEDS: COLCHICINE 0.6 MG TABLET PO SCH (08:28)
[2021-07-03] MEDS: APIXABAN 2.5 MG TABLET PO SCH ×2 (08:28→21:20)
[2021-07-03] MEDS ORDERED: METOPROLOL SUCCINATE 50 MG TAB.SR.24H (TOPROL XL) PO SCH ×2 (09:00)
[2021-07-03] MEDS: INSULIN REGULAR, HUMAN 100 UNITS/ML, 10 ML VIAL (humuLIN R) SUBCUT PRN ×3 (12:01→21:19)
[2021-07-03 23:54] LABS: BODY FLUID GLUCOSE 252 mg/dL; BODY FLUID TOTAL PROTEIN 4.2 g/dL
[2021-07-04 00:20] LABS: BODY FLUID SOURCE/ TYPE PLEURAL; SOURCE/TYPE ,BODY FLUID THORACENTESIS
[2021-07-04 00:21] LABS: APPEARANCE,SPUN,BODY FLUID CLEAR (CLEAR); BF APPEARANCE UNSPUN HAZY (CLEAR); BODY FLUID COLOR YELLOW (LT YELLOW); BODY FLUID TOTAL VOLUME 525 mL; RBC, BODY FLUID 890 /uL; WBC, BODY FLUID 1560 /uL
[2021-07-04 00:22] LABS: EOSINOPHIL, BODY FLUID 0 %; LYMPHOCYTES, BODY FLUID 12 %; MONOCYTES,BODY FLUID 57 %; NEUTROPHIL, BODY FLUID 31 %
[2021-07-04 02:20] VITALS: BP_SYST 102
[2021-07-04] MEDS: LEVOTHYROXINE SODIUM 0.088 MG TABLET PO SCH (06:26)
[2021-07-04 06:48] LABS: BASOPHILS % (AUTO) 0.5 % (0.0-2.0); EOSINOPHILS # (AUTO) 0.1 K/uL (0.0-0.4); EOSINOPHILS % (AUTO) 1.4 % (0.0-4.0); HEMATOCRIT 26.9 % (36-48); HEMOGLOBIN 8.9 g/dL (12.0-16.0); LYMPHOCYTES # (AUTO) 1.3 K/uL (1.0-5.5); MEAN CORPUSCULAR HEMOGLOBIN 27 pg (27-31); MEAN CORPUSCULAR HGB CONC 33 % (32-36); MEAN CORPUSCULAR VOLUME 80 fL (79.0-98.0); MONOCYTES # (AUTO) 0.5 K/uL (0.0-1.0); MONOCYTES % (AUTO) 9.7 % (1.7-9.3); NEUTROPHILS # (AUTO) 2.9 K/uL (1.8-7.7); NEUTROPHILS % (AUTO) 61.4 % (40.0-70.0); PLATELET COUNT (AUTO) 307 K/uL (130-430); RED BLOOD CELL COUNT(AUTO) 3.35 MIL/uL (4.2-6.2); WHITE BLOOD COUNT (AUTO) 4.7 K/uL (4.8-10.8)
[2021-07-04 06:55] LABS: ALBUMIN 2.1 g/dL (3.4-4.8); CALCIUM 7.9 mg/dL (8.4-11.0); CREATININE 1.38 mg/dL (0.55-1.30); POTASSIUM 4.2 mmol/L (3.5-5.1); TOTAL BILIRUBIN 0.2 mg/dL (0.0-1.0)
[2021-07-04] MEDS: LOSARTAN POTASSIUM 25 MG TABLET PO SCH (09:00)
[2021-07-04] MEDS: METOPROLOL SUCCINATE 50 MG TAB.SR.24H (TOPROL XL) PO SCH (09:00)
[2021-07-04] MEDS: PANTOPRAZOLE SODIUM 40 MG TAB PO SCH (10:17)
[2021-07-04] MEDS: COLCHICINE 0.6 MG TABLET PO SCH (10:18)
[2021-07-04] MEDS: EZETIMIBE 10 MG TABLET PO SCH (10:19)
[2021-07-04] MEDS: SIMVASTATIN 20 MG TABLET PO SCH (10:20)
[2021-07-04] MEDS: APIXABAN 2.5 MG TABLET PO SCH ×2 (10:23→22:23)
[2021-07-04 11:42] VITALS: BP_SYST 116
[2021-07-04] MEDS: NORMAL SALINE 5 ML DISP.SYRIN IVF SCH ×2 (14:00→22:24)
[2021-07-04 15:43] VITALS: BP_SYST 125
[2021-07-04] MEDS ORDERED: ACETAMINOPHEN 325 MG TABLET PO PRN (20:15)
[2021-07-04 22:20] VITALS: BP_SYST 123
[2021-07-04] MEDS: INSULIN REGULAR, HUMAN 100 UNITS/ML, 10 ML VIAL (humuLIN R) SUBCUT PRN (22:28)
[2021-07-05 01:40] VITALS: BP_SYST 133
[2021-07-05] MEDS: NORMAL SALINE 5 ML DISP.SYRIN IVF SCH ×3 (05:03→21:07)
[2021-07-05] MEDS: LEVOTHYROXINE SODIUM 0.088 MG TABLET PO SCH (06:50)
[2021-07-05 08:07] VITALS: BP_SYST 142
[2021-07-05] MEDS: LOSARTAN POTASSIUM 25 MG TABLET PO SCH (09:00)
[2021-07-05] MEDS ORDERED: LORazepam 1 MG TABLET PO PRN (09:00)
[2021-07-05] MEDS: METOPROLOL SUCCINATE 50 MG TAB.SR.24H (TOPROL XL) PO SCH (09:00)
[2021-07-05] MEDS: COLCHICINE 0.6 MG TABLET PO SCH (10:07)
[2021-07-05] MEDS: PANTOPRAZOLE SODIUM 40 MG TAB PO SCH (10:09)
[2021-07-05] MEDS: EZETIMIBE 10 MG TABLET PO SCH (10:09)
[2021-07-05] MEDS: SIMVASTATIN 20 MG TABLET PO SCH (10:09)
[2021-07-05] MEDS: APIXABAN 2.5 MG TABLET PO SCH ×2 (10:10→21:06)
[2021-07-05 11:34] VITALS: BP_SYST 108
[2021-07-05] MEDS: INSULIN REGULAR, HUMAN 100 UNITS/ML, 10 ML VIAL (humuLIN R) SUBCUT PRN ×2 (15:10→21:12)
[2021-07-05 15:52] VITALS: BP_SYST 105
[2021-07-05] MEDS: ACETAMINOPHEN 325 MG TABLET PO PRN ×2 (18:34→23:49)
[2021-07-05 20:29] VITALS: BP_SYST 112
[2021-07-06] VITALS: BP_SYST 120
[2021-07-06] MEDS: ACETAMINOPHEN 325 MG TABLET PO PRN (00:25)
[2021-07-06] MEDS: INSULIN REGULAR, HUMAN 100 UNITS/ML, 10 ML VIAL (humuLIN R) SUBCUT PRN ×4 (02:31→20:25)
[2021-07-06] MEDS: LEVOTHYROXINE SODIUM 0.088 MG TABLET PO SCH (06:27)
[2021-07-06] MEDS: NORMAL SALINE 5 ML DISP.SYRIN IVF SCH ×3 (06:33→23:19)
[2021-07-06] MEDS: APIXABAN 2.5 MG TABLET PO SCH ×2 (09:00→20:25)
[2021-07-06] MEDS: SIMVASTATIN 20 MG TABLET PO SCH (09:00)
[2021-07-06] MEDS: COLCHICINE 0.6 MG TABLET PO SCH (09:00)
[2021-07-06] MEDS: EZETIMIBE 10 MG TABLET PO SCH (09:00)
[2021-07-06] MEDS: LOSARTAN POTASSIUM 25 MG TABLET PO SCH (09:00)
[2021-07-06] MEDS: PANTOPRAZOLE SODIUM 40 MG TAB PO SCH (09:00)
[2021-07-06] MEDS: METOPROLOL SUCCINATE 50 MG TAB.SR.24H (TOPROL XL) PO SCH (09:00)
[2021-07-06 12:37] VITALS: BP_SYST 129
[2021-07-06] MEDS: ONDANSETRON HCL 4 MG/2 ML VIAL IVP PRN (13:57)
[2021-07-06 16:45] VITALS: BP_SYST 124
[2021-07-06] MEDS ORDERED: guaiFENesin/DEXTROMETHORPHAN 118 ML PO PRN (18:15)
[2021-07-06] MEDS ORDERED: guaiFENesin 200 MG/CODEINE 20 MG/ 10 ML UDC ONE (19:05)
[2021-07-06 20:18] VITALS: BP_SYST 112
[2021-07-06] MEDS: metFORMIN HCL 500 MG TABLET PO SCH (21:00)
[2021-07-07 00:14] VITALS: BP_SYST 93
[2021-07-07] MEDS: LEVOTHYROXINE SODIUM 0.088 MG TABLET PO SCH (06:38)
[2021-07-07] MEDS: NORMAL SALINE 5 ML DISP.SYRIN IVF SCH (06:39)
[2021-07-07] MEDS: INSULIN REGULAR, HUMAN 100 UNITS/ML, 10 ML VIAL (humuLIN R) SUBCUT PRN ×2 (06:42→12:38)
[2021-07-07 08:36] VITALS: BP_SYST 143
[2021-07-07] MEDS: metFORMIN HCL 500 MG TABLET PO SCH (08:48)
[2021-07-07] MEDS: EZETIMIBE 10 MG TABLET PO SCH (08:49)
[2021-07-07] MEDS: LOSARTAN POTASSIUM 25 MG TABLET PO SCH (08:50)
[2021-07-07] MEDS: COLCHICINE 0.6 MG TABLET PO SCH (08:50)
[2021-07-07] MEDS: PANTOPRAZOLE SODIUM 40 MG TAB PO SCH (08:51)
[2021-07-07] MEDS: METOPROLOL SUCCINATE 50 MG TAB.SR.24H (TOPROL XL) PO SCH (08:51)
[2021-07-07] MEDS: SIMVASTATIN 20 MG TABLET PO SCH (08:51)
[2021-07-07] MEDS: APIXABAN 2.5 MG TABLET PO SCH (08:53)
[2021-07-07] MEDS ORDERED: predniSONE 20 MG TABLET PO SCH (09:00)
[2021-07-07] MEDS ORDERED: LORA-259 PO (11:07)
[2021-07-07 15:17] VITALS: BP_SYST 107
== END 2021-07-07 16:00 | disposition home health service (06) | DRG 205 ==
LOC: SED 22:11 → STU 07-01 01:46
PROVIDERS: ADMIT Preventive Medicine Preventive Medicine/Occupational Environmental Medicine; ATTEND Preventive Medicine Preventive Medicine/Occupational Environmental Medicine
PROC: 0W9B3ZZ Drainage of Left Pleural Cavity, Percutaneous Approach (ICD-10-PCS; principal; 2021-07-03)
DX: M94.0 Chondrocostal junction syndrome [Tietze] (principal); J96.01 Acute respiratory failure with hypoxia; I13.0 Hypertensive heart and chronic kidney disease with heart failure and stage 1 through stage 4 chronic kidney disease, or unspecified chronic kidney disease; I31.3 Pericardial effusion (noninflammatory); I48.0 Paroxysmal atrial fibrillation; E11.22 Type 2 diabetes mellitus with diabetic chronic kidney disease; N18.30 Chronic kidney disease, stage 3 unspecified; E03.9 Hypothyroidism, unspecified; F41.8 Other specified anxiety disorders; E78.00 Pure hypercholesterolemia, unspecified; E88.09 Other disorders of plasma-protein metabolism, not elsewhere classified; I50.9 Heart failure, unspecified; Z88.6 Allergy status to analgesic agent; Z88.5 Allergy status to narcotic agent; Z88.8 Allergy status to other drugs, medicaments and biological substances; Z79.899 Other long term (current) drug therapy; Z79.01 Long term (current) use of anticoagulants; Z79.4 Long term (current) use of insulin; Z79.84 Long term (current) use of oral hypoglycemic drugs; Z83.3 Family history of diabetes mellitus; Z90.710 Acquired absence of both cervix and uterus
CPT/HCPCS: 32555; 36415; 71045; 71250-TC; 76376; 76604; 80053; 81000; 82947; 82962; 83735; 83880; 84100; 84157; 84484; 85025; 86431; 87070-TC; 87116; 88108; 88305; 89051-TC; 89060-TC; 93005; 96374; 99291; G0378; J1815; J2405; J7512